=== PATIENT | female | born 1990 | race Two or more races ===

== ENCOUNTER → 2024-04-19 | Outpatient (REF) | payer OTHER | LOC: M PLALAB 14:27 | PROVIDERS: ATTEND Advanced Practice Midwife | DX: Z34.81 Encounter for supervision of other normal pregnancy, first trimester (principal) ==

== ENCOUNTER → 2024-04-19 | Outpatient (CLI) | payer OTHER ==
[2024-04-19 17:20] LABS: HEMATOCRIT 34.7 % (36.0-47.0); HEMOGLOBIN 11.4 g/dl (12.0-15.5); MEAN CORPUSCULAR HEMOGLOBIN 30.2 pg (27.0-33.0); MEAN CORPUSCULAR HGB CONC 32.9 g/dl (32.0-36.5); PLATELET COUNT, AUTOMATED 248 10^3/uL (150-450); RED BLOOD COUNT 3.77 10^6/uL (4.00-5.40); WHITE BLOOD COUNT 10.5 10^3/uL (4.0-10.0)
[2024-04-19 17:42] LABS: TOTAL PROTEIN,RANDOM URINE 22.3 MG/DL (0.0-14.0)
[2024-04-19 17:46] LABS: URIC ACID 3.4 MG/DL (3.1-7.8)
[2024-04-19 17:47] LABS: CREATININE,RANDOM URINE 243.8 MG/DL
[2024-04-19 17:48] LABS: LDH LACTATE DEHYDROGENASE 151 U/L (120-246)
[2024-04-19 17:49] LABS: ALT/SGPT 21 U/L (7.0-40); AST/SGOT 14 U/L (<34); BILIRUBIN,TOTAL 0.4 MG/DL (0.3-1.2); CREATININE FOR GFR 0.54 MG/DL (0.55-1.30); GLOMERULAR FILTRATION RATE > 60.0 (>60)
[2024-04-19 18:15] LABS: HIV 1&2 SCREEN NEGATIVE (NEGATIVE)
[2024-04-19 18:22] LABS: HEPATITIS C VIRUS ABY INDEX < 0.02 INDEX (<0.8)
[2024-04-19 21:27] LABS: GC DNA AMPLIFICATION NEGATIVE (NEGATIVE)
== END ==
LOC: M PLALAB 14:47
PROVIDERS: ATTEND Advanced Practice Midwife
DX: Z34.81 Encounter for supervision of other normal pregnancy, first trimester (principal)